=== PATIENT | female | born 1980 | race Caucasian/White ===

== ENCOUNTER 2024-05-24 19:54 | Emergency (ER) | payer BC, SELFPAY ==
[2024-05-24 19:56] VITALS: BP 110/73
--- NOTE | 2024-05-24 20:34 | ED.GENMED ---
History of Present Illness
General
Chief Complaint: Cardiac Symptoms
Time Seen by Provider: 05/24/24 20:17
History of Present Illness
History of Present Illness:
Patient is a 43-year-old woman who is otherwise healthy presenting to the emergency department chest and back pain. Patient states that about a week ago she was moving furniture all throughout the house. A few days after she developed back pain
and chest pain. Initially it was back pain and then spread to her chest. She got worried as the pain occasionally will travel down her arm. She states that it is reproduced with different positions. She states that walking and stretching helps
at the most. The pain is not exertional. It is not pleuritic. She denies any numbness tingling. Occasionally will have a shooting sensation down her left arm though that resolves. Denies any history of chest pain with exertion. She does state
that she believes her grandmother had DE at an early age both father and mother and siblings are otherwise healthy. She denies any shortness of breath. No leg swelling. No travel. She does state that about a month ago she had a cat bite to the
left hand and was given antibiotics. She does not note any lymph node swelling. She has been taking Aleve at home with some relief. She has been trying to stretch. She did talk to the nurse over the phone who stated that she should come to the
emergency department for evaluation given that she was now having chest pain.
Past History
Past History
ED Past Medical History: Negative Hypercholesterolemia, IDDM or NIDDM
ED Past Surgical History:
Social History
Tobacco: Non-smoker
Alcohol: None
Drug: None
Personal:
Living: with family
Employment: Employed
Family History
Family History: Other (Noncontributory)
Phy Exam
Physical Exam
Physical Exam:
GENERAL: in no acute distress
HEENT: normocephalic, extraocular movements intact, moist oral mucosa
NECK: normal inspection
RESPIRATORY: no respiratory distress, clear to auscultation bilaterally
CARDIOVASCULAR: regular rate and rhythm, 2+ radial pulses bilaterally
Back: Tenderness over the medial aspect of the left scapula along the rhomboid muscles as well as the left pectoralis
ABDOMEN/: soft, non-distended, non-tender to palpation, no rebound or guarding
EXTREMITIES: non-tender, no edema/swelling
NEUROLOGIC: awake and alert, moves all extremities
SKIN: warm, no axillary lymphadenopathy
Course
Orders/Labs/Results
Orders:
Orders
05/24/24 20:00
ECG [Electrocardiogram (*1)] Urgent
Reason for Study: Chest Pain
EKG- Treatment ONCE
Vital Signs
Initial and Last Documented VS:
Initial Vital Signs
Temp Pulse Resp BP Pulse Ox
98.3 F 85 20 110/73 99
05/24/24 19:56 05/24/24 19:56 05/24/24 19:56 05/24/24 19:56 05/24/24 19:56
Last Documented Vital Signs
Temp Pulse Resp BP Pulse Ox
98.3 F 77 17 110/73 98
05/24/24 19:56 05/24/24 20:29 05/24/24 20:29 05/24/24 19:56 05/24/24 20:29
MDM/Problems Addressed
Differential Diagnosis Includes:
Patient is a 43-year-old woman who is otherwise healthy presenting to the emergency department with 1 week of left upper back and left arm and left chest pain in the setting of heavy lifting. Vitals here are unremarkable and exam does show
reproducible tenderness over the back and the chest. Likely musculoskeletal pain especially given that she did have heavy and strenuous use prior to the onset of symptoms. History and exam not consistent with ACS. She did have a cat scratch bite
but no obvious lymphadenopathy to suggest Bartonella. She is PERC negative so doubt PE. EKG was obtained prior to my evaluation. Per my interpretation it is normal sinus rhythm with no ST changes. We did discuss about the possibility of
obtaining blood work however after shared decision making we will hold off. Patient provided information on icing NSAIDs and early mobility to help with muscle healing. Offered pain management here however patient would prefer discharge at this
time which is appropriate
*Critical Care Note
Total Time (30-74mins, 75-104mins- exclusive of procedures): Not Applicable
ED Attending Note
-
Portions of this chart may have been created with voice recognition software.� Occasional wrong word or��sound alike� substitutions may have occurred due to the inherent limitations of voice recognition software.
Discharge Plan
Departure
Patient Disposition: Home (Routine Discharge)
Date of Disposition: 05/24/24
Time of Disposition: 20:32
Patient with high blood pressure during this ER visit?: No
Discharge Problem:
Musculoskeletal pain
Instructions: Musculoskeletal Pain
Prescriptions:
No Action
hydrocodone-acetaminophen 1 TABLET tablet
1 tab PO Q4HPRN PRN (Reason: pain) Qty: 10 0RF
ibuprofen 600 MG tablet
600 mg PO Q6HPRN PRN (Reason: pain) Qty: 20 0RF
methylprednisolone [Medrol (Jalen)] 4 MG tablets,dose pack
4 tab PO . DIRECT Qty: 1 0RF
Activity Restrictions/Additional Instructions:
We discussed pain medications:
You may take Tylenol (also known as Acetaminophen) for pain.
You may take 1000mg Acetaminophen (two extra-strength tablets) per dose, which should be taken every 6-8 hours, or three times a day.
If you have normal strength Tylenol, you can take 650mg (two normal strength tablets) every 4-6 hours.
Do not take more than 3,000mg (3 grams) of Acetaminophen per day.
Never take more than as directed on the bottle.
You may take Ibuprofen (also known as Motrin or Advil). If taking with Tylenol, alternate and take between dosing.
You may take 400-800mg of Ibuprofen per dose, which should be taken every 6-8 hours.
Do not take more than 3200mg (3.2 grams) of Ibuprofen per day.
You may also benefit from using a Lidocaine Patch (also known as 'Salon Pas'), which is an over the counter pain patch.
Place it just over the site of pain, avoiding areas of skin damage, as per instructions on the patch.
Please see your primary care doctor soon to be reevaluated and to make sure that you are improving. We have included information about establishing care with a doctor if you do not have one.
We talked about your evaluation, diagnosis, and treatment in the Emergency Department today. You must see your primary doctor for recheck and followup care in order to evaluate your progress or any changes. Have your doctor recheck the test
results/information from the ED visit. As discussed, RETURN to the ED if you develop worsening/changing symptoms or have no improvement in symptoms after the treatments provided.
Interventions
Interventions:
*Risk Screen - Suicide Last Done: 05/24/24 20:34
*General Assessment Last Done: 05/24/24 20:34
*Neglect/Abuse Screening Last Done: 05/24/24 20:34
*ED COVID-19 Vaccine History Last Done: 05/24/24 20:34
ED- Pulmonary Assessment Last Done: 05/24/24 20:30
ED- Cardiac Assessment Last Done: 05/24/24 20:30
Discharge Date and Time
Print Language: [place]
[2024-05-24 20:35] VITALS: BP 105/70
== END 2024-05-24 20:50 | disposition home or self-care (01) ==
LOC: EMR 19:54
PROVIDERS: EMERGENCY PHYSICIAN Student in an Organized Health Care Education/Training Program; FAMILY PHYSICIAN Family Medicine
DX: M54.6 Pain in thoracic spine (principal); R07.89 Other chest pain; M79.602 Pain in left arm; M79.18 Myalgia, other site; Z88.1 Allergy status to other antibiotic agents
CPT/HCPCS: 99283; 93005